=== PATIENT | male | born 1945 | race Two or more races ===

== ENCOUNTER 2020-07-06 13:21 | Inpatient (IN) | payer OTHER ==
[~2020-07-06] VITALS: Ht 27.9 cm; Wt 5.0 kg
[2020-07-06] MEDS ORDERED: TOPROL XL25 M1 PO (13:37)
[2020-07-06] MEDS ORDERED: HYDROCHLOROTH12.5 MG PO (13:37)
[2020-07-06] MEDS ORDERED: FORTAMET1000 MG PO (13:37)
[2020-07-06] MEDS ORDERED: TRANDOLAPRIL2 MG PO (13:38)
[2020-07-06] MEDS ORDERED: SIMVASTATIN10 MG PO (13:38)
[2020-07-06] MEDS ORDERED: VERELAN180 MG PO (13:39)
[2020-07-06] MEDS ORDERED: HUMULIN R500 UNIT/2 SQ (13:39)
[2020-07-06] MEDS ORDERED: CHILDREN'S ASPI81 MG PO (13:40)
[2020-07-06] MEDS ORDERED: LANTUS SOL100 UNIT/1 SQ (13:40)
[2020-07-21] MEDS ORDERED: SAW PALMETTO450 MG (11:47)
[2020-07-21] MEDS ORDERED: DICLOFENAC SODI75 MG (11:48)
[2020-07-21] MEDS ORDERED: DICLOFENAC POTA50 MG (11:48)
[2020-07-21] MEDS ORDERED: GABAPENTIN300 M2 (11:48)
[2020-07-21] MEDS ORDERED: LOPRESSOR25 MG (11:48)
[2020-07-21] MEDS ORDERED: NOVOLIN R100 UNIT/1 (11:48)
== END 2020-07-25 05:11 | disposition expired | DRG 377 ==
LOC: ER 13:21 → ICU-2 21:28
PROVIDERS: ADMIT Internal Medicine; ATTEND Internal Medicine
PROC: 30233N1 Transfusion of Nonautologous Red Blood Cells into Peripheral Vein, Percutaneous Approach (ICD-10-PCS; 2020-07-07)
PROC: 02HV33Z Insertion of Infusion Device into Superior Vena Cava, Percutaneous Approach (ICD-10-PCS; 2020-07-09)
PROC: 30243L1 Transfusion of Nonautologous Fresh Plasma into Central Vein, Percutaneous Approach (ICD-10-PCS; 2020-07-10)
PROC: 30243K1 Transfusion of Nonautologous Frozen Plasma into Central Vein, Percutaneous Approach (ICD-10-PCS; 2020-07-10)
PROC: 0DB78ZX Excision of Stomach, Pylorus, Via Natural or Artificial Opening Endoscopic, Diagnostic (ICD-10-PCS; principal; 2020-07-11)
PROC: 0BH17EZ Insertion of Endotracheal Airway into Trachea, Via Natural or Artificial Opening (ICD-10-PCS; 2020-07-18)
PROC: 5A1945Z Respiratory Ventilation, 24-96 Consecutive Hours (ICD-10-PCS; 2020-07-18)
PROC: XW043E5 Introduction of Remdesivir Anti-infective into Central Vein, Percutaneous Approach, New Technology Group 5 (ICD-10-PCS; 2020-07-18)
PROC: 8E0ZXY6 Isolation (ICD-10-PCS; 2020-07-18)
DX: K92.1 Melena (principal); U07.1 COVID-19; J12.82 Pneumonia due to coronavirus disease 2019; J80 Acute respiratory distress syndrome; J12.81 Pneumonia due to SARS-associated coronavirus; I47.1 Supraventricular tachycardia; N17.8 Other acute kidney failure; Z79.4 Long term (current) use of insulin; E13.65 Other specified diabetes mellitus with hyperglycemia; Z20.822 Contact with and (suspected) exposure to COVID-19